=== PATIENT | female | born 1955 | race Two or more races ===

== ENCOUNTER 2023-02-16 07:20 | Day surgery (SDC) | payer MEDICARE, MEDICAID, SELFPAY ==
--- NOTE | 2023-02-15 | EKG_ITS ---
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
[2023-02-15 08:02] VITALS: BMI 27.3
--- NOTE | 2023-02-15 08:15 | ESHP_ITS ---
HPI Date of Admission 02/16/23 Chief Complaint Chief Complaint: Right breast cancer at 12 0' clock position HPI This 67-year-old female is brought to the hospital for lumpectomy at the 12 o'clock position of the right breast and sentinel lymph node biopsy. The risk benefits and alternatives were discussed with the patient and informed consent is obtained. She had a lesion and then she had ultrasound-guided biopsy done that turned out to be malignant. Past Medical History Past Medical History NEUROLOGIC: Negative Neurological Disorders CARDIAC: Positive Cardiac Disorders, Hypercholesterolemia and Hypertension; Negative Congestive Heart Failure RESPIRATORY: Negative Respiratory Disorders or Chronic Obstructive Pulmonary Disease (COPD) GASTROINTESTINAL: Positive Gastrointestinal Disorders and Obesity GENITOURINARY: Negative Genitourinary Disorders or Renal Disease REPRODUCTIVE: Positive Breast Cancer (Right) and Previous Pregnancies MUSCULOSKELETAL: Negative Musculoskeletal Disorders ENT: Negative History of ENT Problems ENDOCRINE: Positive Endocrine Disorders and Diabetes Mellitus Type 2; Negative Diabetes Mellitus Type 1 HEMATOLOGIC: Negative Blood Disorders OTHER HISTORY: Positive Cancer and Breast Cancer (Right); Negative Autoimmune Disease, Shingles, Blood Transfusions or Anesthesia Reactions Family History FAMILY HISTORY: Positive Family Cardiac Disorders, Family Endocrine Disorders, Family Cancer and Family Surgery; Negative Family Psychiatric Problems, Family Respiratory Disorders, Family Gastrointestinal Problems, Family Genitourinary Problems, Family Reproductive Disorders, Family Musculoskeletal Disorders or Family Anesthesia Reaction Surgical History SURGICAL: Positive Section (x2) OTHER SURGICAL HX: tumors removed from uterus Social History SMOKING STATUS: Never smoker Travel History EBOLA RISK: No Meds Home Medications and Allergies Home Medications Medication Instructions Recorded Confirmed Type lisinopril 10 mg tablet 10 mg PO QDAY 02/15/23 02/15/23 History metformin 500 mg tablet 500 mg PO QDAY 02/15/23 02/15/23 History simvastatin 20 mg tablet 20 mg PO QPM 02/15/23 02/15/23 History Allergies Allergy/AdvReac Type Severity Reaction Status Date / Time No Known Allergies Allergy Verified 02/15/23 08:00 Exam Constitutional Constitutional: no acute distress Routine HEENT Exam Head: Present normocephalic Eye: Present EOMI and PERRL ENT: Present mucous membranes moist Routine Neck Exam Neck: Present supple and trachea midline Routine Chest/Breast/Axilla Exam Chest wall: Absent tenderness or mass Breast: Present mass (The imaging study showed that she has a lesion at 12 o'clock position however it is barely palpable. She will require ultrasound- guided localization intraoperatively.) Axillae: Absent mass Routine Respiratory Exam Respiratory: Present chest non-tender, lungs clear, normal breath sounds and no resp distress; Absent respiratory distress Routine Cardiovascular Exam Cardiovascular: Present RRR Routine Abdominal Exam Abdominal: Present soft and normoactive bowel sounds Routine Extremities Exam Extremities: Present full ROM Routine Skin Exam Skin: Present intact, dry and warm Routine Neurological Exam Neurological: Present alert, oriented X3 and CN II-XII intact Routine Psychiatric Exam Psychiatric: Present normal affect and normal thought process Assessment & Plan Problem List (1) Breast cancer, right breast: Status: Acute Plan [place] lymph node biopsy right breast and lumpectomy with ultrasound-guided localization and rapid frozen section for margin. Informed consent was obtained.
[2023-02-15 10:23] LABS: Basophils % (Auto) 0 % (0-2.5); Eosinophils # (Auto) 0.1 Thou/mm3 (0.0-0.5); Eosinophils % (Auto) 2 % (0-10); Hematocrit 40.1 % (36.0-46.0); Hemoglobin 13.5 g/dL (12.0-16.0); Immature Granulocytes % (Auto) 0 % (0-0); Immature Granulocytes Auto 0.02 Thou/mm3 (0.00-0.00); Lymphocytes # (Auto) 3.3 Thou/mm3 (1.0-4.8); Lymphocytes % (Auto) 45 % (10-50); Mean Corpuscular HGB Conc 33.7 g/dl (31.0-37.0); Mean Corpuscular Hemoglobin 30.1 pg (25.0-35.0); Mean Corpuscular Volume 89 fL (80-100); Monocytes # (Auto) 0.6 Thou/mm3 (0.0-0.8); Monocytes % (Auto) 8 % (0-12); Neutrophils # (Auto) 3.3 Thou/mm3 (1.8-7.7); Neutrophils % (Auto) 44 % (37-80); Nucleated Red Blood Cell % 0 /100 WBC (0); Platelet Count 265 Thou/mm3 (140-440); RDW Standard Deviation 40.7 fL (36.4-46.3); Red Blood Count 4.49 Miln/mm3 (4.00-5.20); White Blood Count 7.4 Thou/mm3 (3.6-11.0)
[2023-02-15 10:25] LABS: Bilirubin,Urine Negative (Negative); Blood,Urine Trace (Negative); Clarity,Urine Clear (Clear/Hazy); Color,Urine Lt-Yellow (Lt Yel-Yel); Glucose, Urine Negative (Negative); Ketones,Urine Negative (Negative); Leukocyte Esterase,Urine Negative (Negative); Nitrite,Urine Negative (Negative); Protein,Urine Trace (Neg - Trace); RBC,Urine 7 /hpf (0-3); Specific Gravity,Urine 1.017 (1.001-1.035); Squamous Epithelial Cell,Urine 4 /hpf (0-5); Urobilinogen,Urine Negative mg/dL (0.0-1.0); WBC,Urine 1 /hpf (0-5)
[2023-02-15 10:33] LABS: Partial Thromboplastin Time 28.7 Seconds (22.0-36.0); Prothrombin Time 10.3 Seconds (9.0-12.2)
[2023-02-15 10:48] LABS: Collection Type, Urine Clean Catch
[2023-02-15 10:51] LABS: Alanine Aminotransferase 20 U/L (10-49); Albumin, Serum 4.6 gm/dL (3.4-4.8); Albumin/Globulin Ratio 1.4 (1.2-2.2); Alkaline Phosphatase 96 U/L (46-116); Anion Gap 12 (7-16); Aspartate Amino Transferase < 8 U/L (0-34); BUN/Creatinine Ratio 16 Ratio (12-20); Bilirubin,Total 0.5 mg/dL (0.3-1.2); Blood Urea Nitrogen 11 mg/dL (9-23); Calcium 9.8 mg/dL (8.3-10.6); Calcium (Corrected) 9.8 mg/dL (8.5-10.1); Carbon Dioxide 25.4 mMol/L (20.0-31.0); Chloride 103 mMol/L (98-107); Creatinine (Component) 0.7 mg/dL (0.6-1.3); Globulin 3.2 gm/dL (2.3-3.5); Glucose 109 mg/dL (74-106); Osmolality,Calculated 279 (275-295); Potassium 4.5 mMol/L (3.4-5.1); Sodium 140 mMol/L (136-145); Total Protein 7.8 gm/dL (5.7-8.2); eGFR > 60 See Note
[2023-02-16] VITALS (8 sets, daily range): BP systolic 122–144; BP diastolic 51–84; PULSE 80–89; RESP 12–18; TEMP 36.1–36.3; O2SAT 95–100; BMI 27.6
[2023-02-16] MEDS: RINGERS LACTATED 1000 ML 1,000 ML 60 ML IV (07:55)
--- NOTE | 2023-02-16 08:53 | CHAP ---
Patient expressed gratitude for prayer before their procedure.
--- NOTE | 2023-02-16 09:00 | XR_ITS ---
Examination: Nuclear medicine lymph glands imaging [place] lymph node study, right breast Exam date and time: February 16, 2023 0900 hours INDICATIONS: Diagnosis malignant neoplasm unspecified site right female breast, preop lumpectomy today and lymph node dissection TECHNIQUE AND FINDINGS: Informed consent provided. Timeout performed. Skin prepped over the right breast and sterile drape applied maximum sterile barrier technique hand hygiene 1% lidocaine administered for local anesthesia 2.2 mCi technetium 99 M sulfur colloid introduced subareolar No imaging Estimated blood loss 0 cc IMPRESSION: Successful right breast sentinel lymph node study as above
--- NOTE | 2023-02-16 13:57 | SUR.PHASEI ---
Pt arrived with oral airway present, breathing unlabored, dressing to right breast and right axilla clean, dry, and intact, VS stable, report from Nereida MILLS and Jon ADAME.
--- NOTE | 2023-02-16 14:08 | ESOP_ITS ---
Date of Procedure 02/16/23 Pre Op Diagnosis Right breast cancer at 12 o'clock position Post Op Diagnosis Same with the small papillary lesion of the right nipple Procedure Ultrasound-guided wire localization of the right breast mass and lumpectomy and rapid frozen section for margin. On February 16, 2023 [place] lymph node biopsy right axilla Exploration of the nipple and excision of lesion of the right nipple. Findings This patient had a less than 2 cm size hypoechoic mass at 12 o'clock position in the right breast. This was wire localized with the ultrasound guidance. Frozen section showed a malignant lesion and the margins were clear. The axillary sentinel node was identified with radioactive marker and the neoprobe equipment as well as the Lymphazurin blue. There was a lesion of the nipple which was bleeding was raised on the surface and therefore it was excised after exploration of the nipple. This was sent off as a separate specimen. Procedure Description The patient is interviewed in the preop area and site and side were marked. The procedure was discussed in great detail with the patient and the family member. All questions were answered and informed consent is obtained. Patient was then taken to the operating room and patient is positioned supine on the operating table. The general anesthesia was administered in a satisfactory manner. The mass in the right breast was localized with real-time ultrasound examination. Under aseptic precautions and real-time ultrasound guidance Kopan wire is inserted into the tumor at 12 o'clock position. The hookwire was left in the breast. The neoprobe was used to identify the radioactive areas in the axilla as well as at the injection site. All this was documented in the registry form. Lymphazurin blue 6 mL was injected underneath the nipple and areola after 10 mg of Decadron was given to the patient. Patient was prepped and draped in usual manner. Local anesthesia 1% lidocaine with epinephrine is infiltrated in the floor of the axilla and an incision is made and deepened through the layers of skin and subcutaneous tissue. With the use of neoprobe and visual cues of Lymphazurin blue, sentinel lymph node was identified. The sentinel lymph node was blue. The sentinel lymph node had radioactive score over 500. After that lymph node was removed and there was minimal radioactivity in the axilla on the second examination. There were no other positive sentinel lymph nodes. The axillary area was thoroughly irrigated with saline solution and hemostasis was achieved and the fascia was approximated by 3-0 Vicryl interrupted sutures and skin by herman. After this the area indicated by the Kopan wire was identified and again lidocaine 1% with epinephrine is infiltrated and a curvilinear transverse incision is made at about 12 o'clock position in the right breast. This was deepened through the layers of skin and subcutaneous tissue and the mass in the right breast was identified. Wide margin of normal was achieved around the tumor. Hemostasis was achieved. The tumor was removed with the wire. This was oriented anatomically and was given to the pathologist for rapid frozen section. The frozen section confirmed the presence of cancer and that the tumor was about 0.5 cm from the closest margin. This was anterior margin. The tumor was very close to the skin. Therefore margin was deemed to be clear. After this the hemostasis again achieved operative field is thoroughly irrigated with saline solution then fascia is approximated by 3-0 Vicryl interrupted sutures and skin by herman. On close examination I found a bleeding lesion in the right nipple which was papillary and coming out from the ductal opening. Upon compression of the nipple there was also bleeding coming out from the duct. This was explored and then I decided to remove the wedge section of the nipple because this could be a second cancer. With a 2 mm margin I removed that lesion. Hemostasis was achieved and then the incision in the nipple was closed using 4-0 nylon interrupted sutures. Sterile dressing with ABD pads is applied on all incisions. Breast binder is used. Patient tolerated the procedure very well complications none. Anesthesia GETA Drains None. Implants None. Pathology / specimen Other (Right breast lumpectomy at 12 o'clock position with rapid frozen section. Right axillary sentinel lymph node. Lesion of the right nipple.) Estimated Blood Loss 10 Condition Stable Disposition PACU Surgeon Dylon Vergara MD Surgical Staff Operation Date: 02/16/23 11:45 <No data on this case meets the specified criteria> Jon ADAME drop machine operator Neerida Perry RN online activist BAKARI Trevino [address] Justice Brenda medical laboratory technologist
--- NOTE | 2023-02-16 14:29 | SUR.PHASEI ---
Pt tolerating water without difficulty swallowing or n/v
--- NOTE | 2023-02-16 15:20 | SUR.PHASEII ---
Pt awake, alert, able to follow commands, breathing unlabored, dressing to right breast and right axilla clean, dry, and intact, breast binder in place, pt able to dress self with minimal assistance and ambulate to wheelchair with steady gait, discharge instructions given with daughter present using Lithuanian telephone interpreter and translator Ko ID#[id number], all questions answered, pt discharged via wheelchair with all belongings and copies of discharge paperwork.
== END 2023-02-16 15:20 | disposition home or self-care (01) ==
PROVIDERS: PCP Student in an Organized Health Care Education/Training Program; Referring Provider Specialist; Visit Provider Specialist
PROC: (CPT 19301; principal; 2023-02-16 11:30)
DX: D05.11 Intraductal carcinoma in situ of right breast (principal); E11.9 Type 2 diabetes mellitus without complications; E66.9 Obesity, unspecified; E78.00 Pure hypercholesterolemia, unspecified; I10 Essential (primary) hypertension; Z79.84 Long term (current) use of oral hypoglycemic drugs; Z82.49 Family history of ischemic heart disease and other diseases of the circulatory system; Z85.3 Personal history of malignant neoplasm of breast; Z68.27 Body mass index [BMI] 27.0-27.9, adult
CPT/HCPCS: 19301; 38500; 38792; 36415; 80053; 81001; 85025; 85610; 85730; 93005; A4649; A9541; J0330; J0690; J1100; J1885; J2250; J2405; J2704; J3010; J3490; J7120; Q9968

== ENCOUNTER 2024-03-04 13:03 | Outpatient (RCR) | payer MEDICARE, SELFPAY | END 2024-03-15 23:59 | disposition home or self-care (01) | LOC: SCTC 13:03 | PROVIDERS: PCP Physician Assistant Medical; Referring Provider Nurse Practitioner Family; Visit Provider Nurse Practitioner Family | DX: C50.811 Malignant neoplasm of overlapping sites of right female breast (principal); Z17.0 Estrogen receptor positive status [ER+]; Z17.21 Progesterone receptor positive status; Z17.32 Human epidermal growth factor receptor 2 negative status; Z90.11 Acquired absence of right breast and nipple; M85.80 Other specified disorders of bone density and structure, unspecified site; Z79.811 Long term (current) use of aromatase inhibitors; Z92.3 Personal history of irradiation | CPT/HCPCS: 99212; G0463 ==

== ENCOUNTER 2024-06-04 10:50 | Outpatient (RCR) | payer MEDICARE, SELFPAY ==
--- NOTE | 2024-06-05 08:00 | CTCFLWUP_ITS ---
Patient: JOAQUIN GIRON : 1955 Page 8 of 9 FOLLOW UP NOTE DATE OF SERVICE: 06/04/2024 NAME: JOAQUIN GIRON ACCOUNT: [id number] : 1955 AGE: 68 INTERVAL HISTORY: Patient here for follow-up#1. 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 S/p core biopsy of the right breast mass (11/29/2022) Status postlumpectomy and sentinel lymph node biopsy (02/16/2023) Oncotype DX recurrence score of 10. Currently on anastrozole (04/19/2023???), tolerating well but for mild occasional hot flashes. S/p radiation therapy to the right breast (05/15/2023 - 06/13/2023) Left breast fine-needle aspiration, no malignant cells, 11/01/2023. Left breast mass excision biopsy-benign fibroadenoma, negative for carcinoma 12/31/2023. Patient complaining of intermittent right breastpain. Bilateral breast ultrasound-suspicious masses 11 o'clock position right breast, 12 o'clock position left breast masses are amendable to ultrasound-guided breast biopsy for diagnosis, 02/04/2024 Right breast diagnostic mammogram, recommend biopsy of 11:00 oval mass with indistinct margins to confirm scar formation and exclude recurrent or residual malignancy, 02/04/2024. Continue anastrozole Ordered ultrasound-guided biopsies of left and right breast masses per breast imaging recommendations done on 02/04/2024. Left breast ultrasound showed probable scar formation left breast, recommend 6- month follow-up to document stability of scar, 02/27/2024. Benign right breast stroma, 02/27/2024. Bilateral breast MRI with and without contrast in 6 months, due 08/2024. Patient denies any breast concerns during today's appointment. #2. Bone density test showed osteopenia (02/09/2023) Continue alendronate 35 mg weekly and calcium plus vitamin D twice daily. Last time patient took Fosamax was 10/20/2023 in preparation for dental work. Patient aware she needs to be off Fosamax for 3 months prior to dental work, after January 20, 2024, patient may proceed with planned dental work, wait 3 months after dental work to restart Fosamax. #3. Colon cancer screening Pending GI referral for colonoscopy screening. Return to clinic in 3 months for follow-up visit, CBC CMP prior to follow-up ONCOLOGY HISTORY: DIAGNOSIS: Malignant neoplasm of unspecified site of right female breast [ICD10] C50.911 DATE OF DIAGNOSIS: 07/11/2022 STAGE/TNM: [id number] TREATMENT HISTORY: Care?Plan Start?Date Cycle Day Intent HISTORY OF PRESENT ILLNESS: This is an office follow-up visit. Ms. Giron is here [facility] clinic. She is accompanied by her daughter. Left breast ultrasound showed probably benign findings, probable scar formation to left breast, recommended additional 6-month left breast ultra sound, 02/27/2024. Right breast biopsy showed benign stroma only. Patient denies palpable breast lumps. Patient currently taking daily anastrozole. Tolerating anastrozole well but for mild occasional hot flashes. Denies any joint pains or muscle aches. Denies any cough, chest pain, abdominal pain or leg cramps. Ambulating well without any help. ONCOLOGICAL HISTORY: Joaquin Giron is a 68-year-old SPA speaking female with history of hypertension, diabetes as well as hyperlipidemia had yearly screening mammograms on 07/11/2022. 07/11/2022: Bilateral screening mammograms? 11/01/2022: Ms. Giron had bilateral diagnostic mammograms with additional views Spot compression and complete bilateral ultrasound? 11/29/2022: Ultrasound-guided biopsy of the right breast mass? 02/09/2023: Bone density test? 02/16/2023: Right breast partial mastectomy and sentinel lymph node biopsy? 03/27/2023: Oncotype DX? 09/13/2023: Bilateral diagnostic mammogram Findings: The breasts are heterogeneously dense, which may obscure small masses Architectural distortion upper outer right breast skin thickening evident consistent with patient's history treated right breast cancer Diffuse bilateral calcifications 20 mm oval mass slightly inner slightly upper left breast Impression: BI-RADS Category 0: Incomplete: Need additional imaging evaluation 20 mm oval mass inner upper left breast, recommend follow-up spot tomographic views of this mass Recommend bilateral breast sonography follow-up to complete workup. 09/25/2023: Ultrasound of breast 11/01/2023: Left breast fine-needle aspiration 12/31/2023: Left breast mass excision 02/04/2024: Bilateral breast [id number] Category 4, suspicious for malignancy, suspicious masses 11 o'clock position right breast, 12 o'clock position left breast, biopsy of both masses is needed to exclude breast carcinoma, these masses are amendable to ultrasound-guided breast biopsy for diagnosis 02/04/2024: Right breast diagnostic [id number] Category 4, suspicious for malignancy, recommend biopsy of 11:00 oval mass with indistinct margins to confirm scar formation and exclude recurrent or residual malignancy 02/27/2024: Left breast ultrasound Probable scar formation left breast 12 o'clock position, probably benign findings, BI-RADS Category 3, 1 additional 6-month left breast ultrasound follow-up is needed to document stability of probable scar formation 02/27/2024: Right breast biopsy-benign stroma OTHER MEDICAL HISTORY/CONDITIONS: HTN Hyperlipdemia Diabetes ?x?2 FAMILY HISTORY: Sibling:?Sister-?Cervical?-dx?55 SOCIAL HISTORY: 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 Tobacco?Use:?Denies ETOH?Use:?Denies Drug?Note:?Denies Social?History?Note:?Lives?with? DEPOT AGENT HISTORY: Menarche?-?Age:?17 Menopause:?58 :?3 Live?Births:?2 Age?1st?:?33 Gynecological?Note:?1?miscarriage MEDICATIONS: 1. anastrozole - 1 mg 1 tab 1 tab po q daily 2. Citracal + D Slow Release - 600 mg-12.5 mcg (500 unit) 1 tab one tab po twice a day 3. lisinopril - 10 mg 1 tab Daily 4. metFORMIN - 500 mg 1 tab Daily 5. simvastatin - 20 mg 1 tab Daily Medications Last Reconciled by Joaquin Gilbert MA on 06/04/2024 ALLERGIES: No Known Drug Allergies REVIEW OF SYSTEMS: A complete 14-point review of systems was performed and is negative except as noted in interval history. PHYSICAL EXAMINATION: VITAL SIGNS: PAIN: 0 - No pain GENERAL APPEARANCE: Appears well, in no apparent distress, appropriately interactive. HEENT: Normocephalic, no temporal wasting, normal conjunctiva, no scleral icterus, normal hearing, lips without lesions, neck normal range of motion. CARDIOVASCULAR: Not assessed. PULMONARY: Normal respiratory effort, no respiratory distress or use of accessory muscles, speaking in full sentences, no tachypnea. EXTREMITIES: No pedal edema or cyanosis. SKIN: Normal skin appearance. NEUROLOGIC: Alert and oriented x4. PSHYCHIATRIC: Appropriate affect, mood normal, behavior normal, intact thought and speech. LABORATORY DATA: I have personally reviewed and interpreted each of the patient?s relevant lab tests, abnormal findings are below: Date 02/26/24 ??WHITE?BLOOD?COUNT?(Thou/mm3) 6.3 ??RED?BLOOD?COUNT?(Miln/mm3) 4.42 ??HEMOGLOBIN?(gm/dl) 13.6 ??HEMATOCRIT?(%) 39.5 ??PLATELET?COUNT?(Thou/mm3) 252 ??NEUTROPHILS?%,?AUTO?(%) 51 ??LYMPH?%,?AUTO?(%) 38 ??NEUTROPHILS,?AUTO?(Thou/mm3) 3.2 ASSESSMENT/PLAN: #1. 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 S/p core biopsy of the right breast mass (11/29/2022) Status postlumpectomy and sentinel lymph node biopsy (02/16/2023) Oncotype DX recurrence score of 10. Currently on anastrozole (04/19/2023???), tolerating well but for mild occasional hot flashes. S/p radiation therapy to the right breast (05/15/2023 - 06/13/2023) Left breast fine-needle aspiration, no malignant cells, 11/01/2023. Left breast mass excision biopsy-benign fibroadenoma, negative for carcinoma 12/31/2023. Patient complaining of intermittent right breastpain. Bilateral breast ultrasound-suspicious masses 11 o'clock position right breast, 12 o'clock position left breast masses are amendable to ultrasound-guided breast biopsy for diagnosis, 02/04/2024 Right breast diagnostic mammogram, recommend biopsy of 11:00 oval mass with indistinct margins to confirm scar formation and exclude recurrent or residual malignancy, 02/04/2024. Continue anastrozole Ordered ultrasound-guided biopsies of left and right breast masses per breast imaging recommendations done on 02/04/2024. Left breast ultrasound showed probable scar formation left breast, recommend 6- month follow-up to document stability of scar, 02/27/2024. Benign right breast stroma, 02/27/2024. Bilateral breast MRI with and without contrast in 6 months, due 08/2024. Patient denies any breast concerns during today's appointment. #2. Bone density test showed osteopenia (02/09/2023) Continue alendronate 35 mg weekly and calcium plus vitamin D twice daily. Last time patient took Fosamax was 10/20/2023 in preparation for dental work. Patient aware she needs to be off Fosamax for 3 months prior to dental work, after January 20, 2024, patient may proceed with planned dental work, wait 3 months after dental work to restart Fosamax. #3. Colon cancer screening referral for colonoscopy screening to Dr. 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 BILLING AND COMPLIANCE: I reviewed external records from providers outside my specialty as summarized above. I spent a total of 50 minutes on this patient?s care on the day of their visit excluding time spent related to any billed procedures. This time includes time spent with the patient as well as time spent documenting in the medical record, reviewing patients records and tests, obtaining history, placing orders, communicating with other healthcare professionals, counseling the patient, family or caregiver, and/or care coordination for the diagnoses above. Electronically Signed by: Antoni Vee MD T: 7:58 AM CC: PCP: Vanessa Du Referring: Vanessa Du This document was completed utilizing speech recognition software. Grammatical errors, random word insertions, pronoun errors, and incomplete sentences are an occasional consequence of this system due to software limitations, ambient noise, and hardware issues. Any formal questions or concerns about the content, text or information contained within the body of this dictation should be directly addressed to the provider for clarification.
== END 2024-06-13 23:59 | disposition home or self-care (01) ==
LOC: SCTC 10:50
PROVIDERS: PCP Physician Assistant Medical; Referring Provider Physician Assistant Medical; Visit Provider Internal Medicine Hematology & Oncology
DX: C50.811 Malignant neoplasm of overlapping sites of right female breast (principal); Z17.0 Estrogen receptor positive status [ER+]; Z17.21 Progesterone receptor positive status; Z17.32 Human epidermal growth factor receptor 2 negative status; Z90.11 Acquired absence of right breast and nipple; Z92.3 Personal history of irradiation; Z79.811 Long term (current) use of aromatase inhibitors; M85.89 Other specified disorders of bone density and structure, multiple sites
CPT/HCPCS: 99213; G0463

== ENCOUNTER → 2024-09-22 | Outpatient (CLI) | payer MEDICARE, SELFPAY ==
[2024-09-22 13:39] LABS: Basophils % (Auto) 1 % (0-2.5); Eosinophils # (Auto) 0.1 Thou/mm3 (0.0-0.5); Eosinophils % (Auto) 2 % (0-10); Hematocrit 35.8 % (36.0-46.0); Immature Granulocytes % (Auto) 0 % (0-0); Immature Granulocytes Auto 0.01 Thou/mm3 (0.00-0.00); Lymphocytes # (Auto) 2.3 Thou/mm3 (1.0-4.8); Lymphocytes % (Auto) 39 % (10-50); Mean Corpuscular HGB Conc 33.5 g/dl (31.0-37.0); Mean Corpuscular Hemoglobin 30.4 pg (25.0-35.0); Mean Corpuscular Volume 91 fL (80-100); Monocytes # (Auto) 0.6 Thou/mm3 (0.0-0.8); Monocytes % (Auto) 10 % (0-12); Neutrophils # (Auto) 2.9 Thou/mm3 (1.8-7.7); Neutrophils % (Auto) 49 % (37-80); Nucleated Red Blood Cell % 0 /100 WBC (0); Platelet Count 231 Thou/mm3 (140-440); RDW Standard Deviation 41.4 fL (36.4-46.3); Red Blood Count 3.95 Miln/mm3 (4.00-5.20); White Blood Count 5.9 Thou/mm3 (3.6-11.0)
[2024-09-22 13:46] LABS: Alanine Aminotransferase 18 U/L (10-49); Albumin, Serum 4.3 gm/dL (3.4-4.8); Albumin/Globulin Ratio 1.7 (1.2-2.2); Alkaline Phosphatase 102 U/L (46-116); Anion Gap 9 (7-16); BUN/Creatinine Ratio 24 Ratio (12-20); Bilirubin,Total 0.4 mg/dL (0.3-1.2); Blood Urea Nitrogen 17 mg/dL (9-23); Calcium 9.2 mg/dL (8.3-10.6); Calcium (Corrected) 9.2 mg/dL (8.5-10.1); Carbon Dioxide 29.4 mMol/L (20.0-31.0); Chloride 103 mMol/L (98-107); Creatinine (Component) 0.7 mg/dL (0.6-1.3); Globulin 2.5 gm/dL (2.3-3.5); Glucose 112 mg/dL (74-106); Osmolality,Calculated 283 (275-295); Potassium 4.2 mMol/L (3.4-5.1); Sodium 141 mMol/L (136-145); Total Protein 6.8 gm/dL (5.7-8.2); eGFR > 60 See Note
--- NOTE | 2024-09-22 14:00 | XR_ITS ---
Examination: Bilateral breast MRI without contrast Bilateral breast MRI with contrast Date and time: September 22, 2024 1402 hours Comparison left breast sonography February 27, 2024, mammogram February 04, 2024 INDICATIONS: Personal history right breast cancer 2022 radiation therapy June 13, 2023 FINDINGS: Bilateral breast MRI images pre and post 14 cc gadolinium Architectural distortion right breast consistent with patient's history of prior surgeries Minimal background breast enhancement No dominant breast lesion No chest wall mass No pathologic axillary lymphadenopathy Postcontrast images demonstrate no focal rapid wash-in and rapid washout areas IMPRESSION: BI-RADS Category 2: Benign findings
== END | disposition home or self-care (01) ==
LOC: SMRI 13:01
PROVIDERS: Referring Provider Nurse Practitioner Family; Visit Provider Nurse Practitioner Family
DX: C50.911 Malignant neoplasm of unspecified site of right female breast (principal)
CPT/HCPCS: 36415; 77049; 80053; 85025; A9579; C8908

== ENCOUNTER 2024-11-24 15:00 | Outpatient (RCR) | payer MEDICARE, SELFPAY ==
--- NOTE | 2024-11-24 02:50 | CTCFLWUP_ITS ---
Patient: JOAQUIN GIRON : 1955 Page 8 of 11 FOLLOW UP NOTE DATE OF SERVICE: 11/24/2024 NAME: JOAQUIN GIRON ACCOUNT: [id number] : 1955 AGE: 69 INTERVAL HISTORY: Patient here for follow-up ONCOLOGY HISTORY: DIAGNOSIS: Malignant neoplasm of unspecified site of right female breast [ICD10] C50.911 DATE OF DIAGNOSIS: 07/11/2022 STAGE/TNM: [id number] TREATMENT HISTORY: Care?Plan Start?Date Cycle Day Intent HISTORY OF PRESENT ILLNESS: This is an office follow-up visit. Ms. Giron is here [facility]. She is accompanied by her daughter. Left breast ultrasound showed probably benign findings, probable scar formation to left breast, recommended additional 6-month left breast ultra sound, 02/27/2024. Right breast biopsy showed benign stroma only. Patient denies palpable breast lumps. Patient currently taking daily anastrozole. Tolerating anastrozole well but for mild occasional hot flashes. Denies any joint pains or muscle aches. Denies any cough, chest pain, abdominal pain or leg cramps. Ambulating well without any help. ONCOLOGICAL HISTORY: Joaquin Giron is a 69-year-old SPA speaking female with history of hypertension, diabetes as well as hyperlipidemia had yearly screening mammograms on 07/11/2022. 07/11/2022: Bilateral screening mammograms? 11/01/2022: Ms. Giron had bilateral diagnostic mammograms with additional views Spot compression and complete bilateral ultrasound? 11/29/2022: Ultrasound-guided biopsy of the right breast mass? 02/09/2023: Bone density test? 02/16/2023: Right breast partial mastectomy and sentinel lymph node biopsy? 03/27/2023: Oncotype DX? 09/13/2023: Bilateral diagnostic mammogram Findings: The breasts are heterogeneously dense, which may obscure small masses Architectural distortion upper outer right breast skin thickening evident consistent with patient's history treated right breast cancer Diffuse bilateral calcifications 20 mm oval mass slightly inner slightly upper left breast Impression: BI-RADS Category 0: Incomplete: Need additional imaging evaluation 20 mm oval mass inner upper left breast, recommend follow-up spot tomographic views of this mass Recommend bilateral breast sonography follow-up to complete workup. 09/25/2023: Ultrasound of breast 11/01/2023: Left breast fine-needle aspiration 12/31/2023: Left breast mass excision 02/04/2024: Bilateral breast [id number] Category 4, suspicious for malignancy, suspicious masses 11 o'clock position right breast, 12 o'clock position left breast, biopsy of both masses is needed to exclude breast carcinoma, these masses are amendable to ultrasound-guided breast biopsy for diagnosis 02/04/2024: Right breast diagnostic [id number] Category 4, suspicious for malignancy, recommend biopsy of 11:00 oval mass with indistinct margins to confirm scar formation and exclude recurrent or residual malignancy 02/27/2024: Left breast ultrasound Probable scar formation left breast 12 o'clock position, probably benign findings, BI-RADS Category 3, 1 additional 6-month left breast ultrasound follow-up is needed to document stability of probable scar formation 02/27/2024: Right breast biopsy-benign stroma OTHER MEDICAL HISTORY/CONDITIONS: HTN Hyperlipdemia Diabetes ?x?2 FAMILY HISTORY: Sibling:?Sister-?Cervical?-dx?55 SOCIAL HISTORY: 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 Tobacco?Use:?Denies ETOH?Use:?Denies Drug?Note:?Denies Social?History?Note:?Lives?with? [employer] HISTORY: Menarche?-?Age:?17 Menopause:?58 :?3 Live?Births:?2 Age?1st?:?33 Gynecological?Note:?1?miscarriage MEDICATIONS: 1. anastrozole - 1 mg 1 tab 1 tab po q daily 2. Arimidex - 1 mg 1 tab Daily 3. calcium citrate-vitamin D3 - 315 mg-6.25 mcg (250 unit) 2 tab Daily 4. Citracal + D Slow Release - 600 mg-12.5 mcg (500 unit) 1 tab one tab po twice a day 5. lisinopril - 10 mg 1 tab Daily 6. metFORMIN - 500 mg 1 tab Daily 7. simvastatin - 40 mg 1 tab Daily Medications Last Reconciled by Joaquin Gilbert MA on 11/19/2024 ALLERGIES: No Known Drug Allergies REVIEW OF SYSTEMS: A complete 14-point review of systems was performed and is negative except as noted in interval history. PHYSICAL EXAMINATION: VITAL SIGNS: GENERAL APPEARANCE: Appears well, in no apparent distress, appropriately interactive. HEENT: Normocephalic, no temporal wasting, normal conjunctiva, no scleral icterus, normal hearing, lips without lesions, neck normal range of motion. CARDIOVASCULAR: Not assessed. PULMONARY: Normal respiratory effort, no respiratory distress or use of accessory muscles, speaking in full sentences, no tachypnea. EXTREMITIES: No pedal edema or cyanosis. SKIN: Normal skin appearance. NEUROLOGIC: Alert and oriented x4. PSHYCHIATRIC: Appropriate affect, mood normal, behavior normal, intact thought and speech. LABORATORY DATA: I have personally reviewed and interpreted each of the patient?s relevant lab tests, abnormal findings are below: Date 02/26/24 09/22/24 ??WHITE?BLOOD?COUNT?(Thou/mm3) 6.3 5.9 ??RED?BLOOD?COUNT?(Miln/mm3) 4.42 3.95?L ??HEMOGLOBIN?(gm/dl) 13.6 12.0 ??HEMATOCRIT?(%) 39.5 35.8?L ??PLATELET?COUNT?(Thou/mm3) 252 231 ??NEUTROPHILS?%,?AUTO?(%) 51 49 ??LYMPH?%,?AUTO?(%) 38 39 ??NEUTROPHILS,?AUTO?(Thou/mm3) 3.2 2.9 ??GLUCOSE,RANDOM?(mg/dL) ? 112?H ??BLOOD?UREA?NITROGEN?(mg/dL) ? 17 ??CREATININE?(mg/dL) ? 0.70 ??SODIUM?(mmol/L) ? 141 ??POTASSIUM?(mmol/L) ? 4.2 ??CHLORIDE?(mmol/L) ? 103 ??CrCl?(CandG)?(ml/min) ? 89.35 ??ALT/SGPT?(Unit/L) ? 18 ??ALKALINE?PHOSPHATASE?(Unit/L) ? 102 ??BILIRUBIN,?TOTAL?(mg/dL) ? 0.4 ??PROTEIN?TOTAL?(gm/dl) ? 6.8 ??ALBUMIN,?SERUM?(gm/dl) ? 4.3 ??GLOBULIN?(gm/dl) ? 2.5 ??ALBUMIN/GLOBULIN?RATIO ? 1.7 ??CALCIUM,?SERUM?(mg/dL) ? 9.2 ??CALCIUM?SERUM?(CORRECTED)?(mg/dL) ? 9.2 ASSESSMENT/PLAN: #1. 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 S/p core biopsy of the right breast mass (11/29/2022) Status postlumpectomy and sentinel lymph node biopsy (02/16/2023) Oncotype DX recurrence score of 10. Currently on anastrozole (04/19/2023???), tolerating well but for mild occasional hot flashes. S/p radiation therapy to the right breast (05/15/2023 - 06/13/2023) Left breast fine-needle aspiration, no malignant cells, 11/01/2023. Left breast mass excision biopsy-benign fibroadenoma, negative for carcinoma 12/31/2023. Patient complaining of intermittent right breastpain. Bilateral breast ultrasound-suspicious masses 11 o'clock position right breast, 12 o'clock position left breast masses are amendable to ultrasound-guided breast biopsy for diagnosis, 02/04/2024 Right breast diagnostic mammogram, recommend biopsy of 11:00 oval mass with indistinct margins to confirm scar formation and exclude recurrent or residual malignancy, 02/04/2024. Continue anastrozole Ordered ultrasound-guided biopsies of left and right breast masses per breast imaging recommendations done on 02/04/2024. Left breast ultrasound showed probable scar formation left breast, recommend 6- month follow-up to document stability of scar, 02/27/2024. Benign right breast stroma, 02/27/2024. Bilateral breast MRI negative on 09/22/2024 Next mammogram will be done in 10/03/2025 #2. Bone density test showed osteopenia (02/09/2023) Continue alendronate 35 mg weekly and calcium plus vitamin D twice daily. Last time patient took Fosamax was 10/20/2023 in preparation for dental work. Patient aware she needs to be off Fosamax for 3 months prior to dental work, after January 20, 2024, patient may proceed with planned dental work, wait 3 months after dental work to restart Fosamax. #3. Colon cancer screening referral for colonoscopy screening to Dr. 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 Refer to hand surgeon Bilaterally x-ray ordered Advised with primary care CBC CMP CA 15-3 Referral to rheumatology and hand surgeon ORDERS: Order # Description [id number] MD Follow Up 6 Month [id number] Left + Breast Ultrasound + Unilateral [id number] Comprehensive Metabolic Panel - 12 + CBC with Auto Diff [id number] DXA L-Spine and Hip [id number] MD Follow Up 6 Month [id number] 3D Mammogram Screening + Bilateral RETURN TO CLINIC: I reviewed the diagnosis, prognosis, and recommended treatment/procedure options with the patient (and/or their legal fraud representative), including the potential benefits, risks, side effects and alternative therapies. We also discussed the option of no treatment and the possibility of clinical trial participation, if applicable. All questions were addressed, and they demonstrated understanding. They provided informed consent to proceed with the proposed plan of care. BILLING AND COMPLIANCE: I reviewed external records from providers outside my specialty as summarized above. I spent a total of 50 minutes on this patient?s care on the day of their visit excluding time spent related to any billed procedures. This time includes time spent with the patient as well as time spent documenting in the medical record, reviewing patients records and tests, obtaining history, placing orders, communicating with other healthcare professionals, counseling the patient, family or caregiver, and/or care coordination for the diagnoses above. Electronically Signed by: Antoni Vee MD T: 2:47 AM CC: PCP: Carlos Strickland Referring: Carlos Strickland This document was completed utilizing speech recognition software. Grammatical errors, random word insertions, pronoun errors, and incomplete sentences are an occasional consequence of this system due to software limitations, ambient noise, and hardware issues. Any formal questions or concerns about the content, text or information contained within the body of this dictation should be directly addressed to the provider for clarification.
== END 2024-12-14 23:59 | disposition home or self-care (01) ==
LOC: SCTC 15:00
PROVIDERS: PCP Family Medicine; Referring Provider Family Medicine; Visit Provider Internal Medicine Hematology & Oncology
DX: C50.811 Malignant neoplasm of overlapping sites of right female breast (principal); Z17.0 Estrogen receptor positive status [ER+]; Z17.21 Progesterone receptor positive status; Z17.32 Human epidermal growth factor receptor 2 negative status; Z90.11 Acquired absence of right breast and nipple; Z79.811 Long term (current) use of aromatase inhibitors; Z92.3 Personal history of irradiation; M85.88 Other specified disorders of bone density and structure, other site; M24.542 Contracture, left hand; M24.541 Contracture, right hand; M25.50 Pain in unspecified joint
CPT/HCPCS: 99213; G0463

== ENCOUNTER → 2025-03-04 | Outpatient (CLI) | payer MEDICARE, SELFPAY ==
--- NOTE | 2025-03-04 13:20 | XR_ITS ---
Examination: Bone densitometry Date and time of exam: March 04, 2025, 1338 hours INDICATIONS: Menopause age 57, personal history osteopenia Technique: Lumbar spine and hip total bone mineralization values of an calculated. Peak reference and age match control results have been displayed. Findings: Lumbar spine total bone mineralization is 0.798 gm/cm2. This is 2.3 standard deviations below peak reference. This is 0.3 standard deviations below age-matched controls. Hip total bone mineralization is 1.22 gm/cm2 This is 1.2 standard deviations above peak reference. This is 2.5 standard deviations above age-matched controls Impression: There is osteopenia based on lumbar spine measurements. There is normal mineralization based on hip measurements Lumbar mineralization is decreased 1.1% compared with February 09, 2023 Hip mineralization is decreased 1.2% compared with February 09, 2023
== END | disposition home or self-care (01) ==
PROVIDERS: PCP Family Medicine; Referring Provider Internal Medicine Hematology & Oncology; Visit Provider Internal Medicine Hematology & Oncology
DX: M85.89 Other specified disorders of bone density and structure, multiple sites (principal); C50.911 Malignant neoplasm of unspecified site of right female breast
CPT/HCPCS: 77080

== ENCOUNTER 2025-04-02 08:03 | Outpatient (RCR) | payer MEDICARE, SELFPAY | END 2025-04-15 23:59 | disposition home or self-care (01) | LOC: SCTC 08:03 | PROVIDERS: PCP Family Medicine; Referring Provider Family Medicine; Visit Provider Internal Medicine Hematology & Oncology | DX: C50.811 Malignant neoplasm of overlapping sites of right female breast (principal); Z17.0 Estrogen receptor positive status [ER+]; Z17.21 Progesterone receptor positive status; Z17.32 Human epidermal growth factor receptor 2 negative status; Z90.11 Acquired absence of right breast and nipple; Z79.811 Long term (current) use of aromatase inhibitors; Z92.3 Personal history of irradiation; M85.88 Other specified disorders of bone density and structure, other site; M25.50 Pain in unspecified joint; M24.542 Contracture, left hand; M24.541 Contracture, right hand | CPT/HCPCS: 36415 ==